=== PATIENT | female | born 1980 | race Caucasian/White ===

== ENCOUNTER 2018-09-20 09:46 | Emergency (ER) | payer OTHER ==
[2018-09-20 10:33] LABS: ADD MAN DIFF? NO
[2018-09-20 10:35] LABS: WHITE BLOOD COUNT 9.8 10^3/ul (4.8-10.8)
[2018-09-20 10:35] LABS: BASOPHILS % 0.3 % (0.0-2.0); EOSINOPHILS % 0.4 % (0.0-7.0); HEMATOCRIT 36.3 % (37.0-47.0); HEMOGLOBIN 12.2 g/dl (12.0-16.0); LYMPHOCYTES % 20.3 % (15.0-51.0); MEAN CORPUSCULAR HEMOGLOBIN 31.2 pg (29.0-33.0); MEAN CORPUSCULAR HGB CONC 33.6 g/dl (32.0-37.0); MEAN CORPUSCULAR VOLUME 92.8 fl (82.0-101.0); MEAN PLATELET VOLUME 9.6 fl (7.4-10.4); MONOCYTE # 0.4 10^3/ul (0.3-0.9); MONOCYTES % 4.2 % (0.0-11.0); NEUTROPHIL # 7.3 10^3/ul (1.6-7.5); NEUTROPHILS % 74.5 % (39.0-77.0); PLATELET COUNT 272 10^3/UL (140-415); RED BLOOD COUNT 3.91 10^6/ul (4.20-5.40); RED CELL DISTRIBUTION WIDTH 13.4 % (11.5-14.5)
[2018-09-20 10:50] LABS: UR BACTERIA FEW /HPF (NONE SEEN); UR RBC > 182 /HPF (0-5); UR SQUAMOUS EPITHELIAL CELL FEW /HPF (FEW); UR WBC 8 /HPF (0-5)
[2018-09-20 11:10] LABS: ADD UMIC YES; UR ASCORBIC ACID NEGATIVE (NEGATIVE); UR BILIRUBIN (Dip) NEGATIVE (NEGATIVE); UR BLOOD (Dip) 3+ mg/dL (NEGATIVE); UR CALCIUM OXALATE CRYSTAL MANY /HPF (NONE SEEN); UR CLARITY CLEAR (CLEAR); UR COLOR YELLOW (YELLOW); UR GLUCOSE (Dip) NEGATIVE (NEGATIVE); UR KETONES (Dip) NEGATIVE (NEGATIVE); UR LEUKOCYTE ESTERASE (Dip) NEGATIVE Leu/ul (NEGATIVE); UR MUCUS FEW /HPF (NONE SEEN); UR NITRITE (Dip) NEGATIVE (NEGATIVE); UR TOTAL PROTEIN (Dip) NEGATIVE (NEGATIVE); UR UROBILINOGEN (Dip) NEGATIVE (NEGATIVE)
== END 2018-09-20 12:25 | disposition home or self-care (01) ==
LOC: FTE 09:46
DX: O03.9 Complete or unspecified spontaneous abortion without complication (principal)
CPT/HCPCS: 36415; 76801; 81001; 84702; 85025; 86900; 86901; 99284-25

== ENCOUNTER 2018-11-20 15:27 | Inpatient (IN) | payer OTHER ==
[2018-11-20] MEDS: ACETAMINOPHEN 500 MG TAB PO (16:25)
[2018-11-20 16:36] LABS: ADD MAN DIFF? NO
[2018-11-20 16:37] LABS: BASOPHILS % 0.4 % (0.0-2.0); EOSINOPHILS # 0.1 10^3/ul (0.0-0.5); EOSINOPHILS % 1.3 % (0.0-7.0); HEMATOCRIT 34.3 % (37.0-47.0); HEMOGLOBIN 11.4 g/dl (12.0-16.0); LYMPHOCYTES # 3.4 10^3/ul (0.8-2.9); LYMPHOCYTES % 32.8 % (15.0-51.0); MEAN CORPUSCULAR HEMOGLOBIN 30.8 pg (29.0-33.0); MEAN CORPUSCULAR HGB CONC 33.2 g/dl (32.0-37.0); MEAN CORPUSCULAR VOLUME 92.7 fl (82.0-101.0); MEAN PLATELET VOLUME 9.6 fl (7.4-10.4); MONOCYTE # 0.5 10^3/ul (0.3-0.9); NEUTROPHIL # 6.2 10^3/ul (1.6-7.5); NEUTROPHILS % 60.4 % (39.0-77.0); PLATELET COUNT 241 10^3/UL (140-415); RED CELL DISTRIBUTION WIDTH 13.1 % (11.5-14.5)
[2018-11-20 16:37] LABS: WHITE BLOOD COUNT 10.3 10^3/ul (4.8-10.8)
[2018-11-20 16:40] LABS: ADD UMIC YES; UR ASCORBIC ACID NEGATIVE (NEGATIVE); UR BILIRUBIN (Dip) NEGATIVE (NEGATIVE); UR BLOOD (Dip) 3+ mg/dL (NEGATIVE); UR CLARITY CLEAR (CLEAR); UR COLOR STRAW (YELLOW); UR GLUCOSE (Dip) NEGATIVE (NEGATIVE); UR KETONES (Dip) NEGATIVE (NEGATIVE); UR LEUKOCYTE ESTERASE (Dip) NEGATIVE Leu/ul (NEGATIVE); UR NITRITE (Dip) NEGATIVE (NEGATIVE); UR RBC 0 /HPF (0-5); UR TOTAL PROTEIN (Dip) NEGATIVE (NEGATIVE); UR UROBILINOGEN (Dip) NEGATIVE (NEGATIVE); UR WBC 1 /HPF (0-5)
[2018-11-20 16:55] LABS: ALANINE AMINOTRANSFERASE 18 IU/L (13-69); ALBUMIN 4.2 g/dl (3.3-4.9); ALBUMIN/GLOBULIN RATIO 1.31; ALKALINE PHOSPHATASE 86 IU/L (42-121); ANION GAP 8 (5-13); ASPARTATE AMINO TRANSFERASE 21 IU/L (15-46); BILIRUBIN,INDIRECT 0.4 mg/dl (0-1.1); BILIRUBIN,TOTAL 0.4 mg/dl (0.2-1.3); BLOOD UREA NITROGEN 13 mg/dl (7-20); CALCIUM 9.4 mg/dl (8.4-10.2); CARBON DIOXIDE 31 mmol/L (21-31); CHLORIDE 102 mmol/L (97-110); CREATININE 0.77 mg/dl (0.44-1.00); Estimated GFR > 60 mL/min (>60); GLUCOSE 95 mg/dl (70-220); LIPASE 64 U/L (23-300); POTASSIUM 3.7 mmol/L (3.5-5.1); SODIUM 141 mmol/L (135-144); TOTAL PROTEIN 7.4 g/dl (6.1-8.1)
[2018-11-20] MEDS: IOHEXOL 300MG/ML 150 ML BTL (18:45)
[2018-11-20] MEDS: SOD CHLORIDE 0.9% 100 ML (18:45)
[2018-11-20] MEDS: PIPER-TAZO 3.375 GM IV (PMX) 100 ML IVPB (19:49)
[2018-11-20] MEDS: SOD CHLORIDE 0.9% 1,000 ML IV (20:02)
[2018-11-20] MEDS ORDERED: DOCUSATE SODIUM 100 MG CAP PO (21:00)
[2018-11-20] MEDS ORDERED: NACL 0.9% 3 ML SYG IV (21:00)
[2018-11-20] MEDS ORDERED: ONDANSETRON 4 MG INJ IV (21:00)
[2018-11-20] MEDS ORDERED: ACETAMINOPHEN 325 MG TAB PO (21:00)
[2018-11-20] MEDS: FAMOTIDINE 20 MG INJ IV (21:39)
[2018-11-20] MEDS: D5-NS + KCL 20 MEQ 1,000 ML IV (21:39)
[2018-11-21] MEDS: D5-NS + KCL 20 MEQ 1,000 ML IV ×2 (05:31→17:00)
[2018-11-21 06:52] LABS: ADD MAN DIFF? NO
[2018-11-21 06:55] LABS: WHITE BLOOD COUNT 5.3 10^3/ul (4.8-10.8)
[2018-11-21 06:55] LABS: BASOPHILS % 0.6 % (0.0-2.0); EOSINOPHILS # 0.1 10^3/ul (0.0-0.5); EOSINOPHILS % 2.5 % (0.0-7.0); HEMATOCRIT 34.2 % (37.0-47.0); LYMPHOCYTES # 2.2 10^3/ul (0.8-2.9); LYMPHOCYTES % 41.3 % (15.0-51.0); MEAN CORPUSCULAR HEMOGLOBIN 30.1 pg (29.0-33.0); MEAN CORPUSCULAR HGB CONC 32.2 g/dl (32.0-37.0); MEAN CORPUSCULAR VOLUME 93.4 fl (82.0-101.0); MEAN PLATELET VOLUME 10.2 fl (7.4-10.4); MONOCYTE # 0.3 10^3/ul (0.3-0.9); NEUTROPHIL # 2.6 10^3/ul (1.6-7.5); NEUTROPHILS % 49.4 % (39.0-77.0); PLATELET COUNT 242 10^3/UL (140-415); RED BLOOD COUNT 3.66 10^6/ul (4.20-5.40); RED CELL DISTRIBUTION WIDTH 13.2 % (11.5-14.5)
[2018-11-21 07:13] LABS: HEMOGLOBIN A1C 5.2 % (0-5.9)
[2018-11-21 07:19] LABS: INR 1.09; PROTIME 14.2 Sec (11.9-14.9); PT RATIO 1.1
[2018-11-21 07:20] LABS: PARTIAL THROMBOPLASTIN TIME 37.9 Sec (23.0-35.0)
[2018-11-21 07:22] LABS: ANION GAP 4 (5-13); BLOOD UREA NITROGEN 8 mg/dl (7-20); CALCIUM 8.5 mg/dl (8.4-10.2); CARBON DIOXIDE 28 mmol/L (21-31); CHLORIDE 108 mmol/L (97-110); CREATININE 0.62 mg/dl (0.44-1.00); Estimated GFR > 60 mL/min (>60); GLUCOSE 103 mg/dl (70-220); POTASSIUM 3.4 mmol/L (3.5-5.1); SODIUM 140 mmol/L (135-144)
[2018-11-21 07:40] LABS: FREE THYROXINE INDEX (Calc) 2.31 ug/ml (0.65-3.89); T3 UPTAKE 36.1 % (23.5-40.5); T4 (THYROXINE) 6.4 ug/dl (5.5-11.0)
[2018-11-21] MEDS: ACETAMINOPHEN 1000MG/100ML IV 100 ML IVPB (10:46)
[2018-11-21] MEDS: FAMOTIDINE 20 MG INJ IV ×2 (10:46→21:44)
[2018-11-21] MEDS ORDERED: MIDAZOLAM 1 MG/ML 2 ML INJ (14:59)
[2018-11-21] MEDS: LIDOCAINE 1%/EPI 30 ML INJ (15:35)
[2018-11-21] MEDS: BUPIVACAINE 0.25% (MPF) 30 ML INJ (15:35)
[2018-11-21] MEDS ORDERED: ONDANSETRON 4 MG INJ (16:05)
[2018-11-21] MEDS ORDERED: NEOSTIGMINE 3 MG/3 ML SYRINGE (16:08)
[2018-11-21] MEDS ORDERED: ROCURONIUM 50 MG INJ (16:08)
[2018-11-21] MEDS ORDERED: metroNIDAZOLE 500 MG/NS (PMX) 100 ML IVPB (16:08)
[2018-11-21] MEDS ORDERED: GLYCOPYRROLATE 0.4 MG INJ (16:08)
[2018-11-21] MEDS ORDERED: CEFAZOLIN 1 GM INJ (16:08)
[2018-11-21] MEDS ORDERED: LIDOCAINE 2% (SDV) 5 ML INJ (16:08)
[2018-11-21] MEDS ORDERED: PROPOFOL 20 ML (16:08)
[2018-11-21] MEDS ORDERED: IBUPROFEN 800 MG TAB PO (16:30)
[2018-11-21] MEDS ORDERED: HYDROmorphONE 0.5 MG/0.5 ML SYG IV (16:30)
[2018-11-21] MEDS ORDERED: ONDANSETRON 4 MG INJ IV (17:00)
[2018-11-21] MEDS ORDERED: METOCLOPRAMIDE 10 MG INJ IV (17:00)
[2018-11-21] MEDS ORDERED: MEPERIDINE 25 MG INJ IV (17:00)
[2018-11-21] MEDS ORDERED: FENTAnyl 50 MCG/ML VIAL IV (17:00)
[2018-11-21] MEDS ORDERED: KETOROLAC 30 MG INJ IV (17:00)
[2018-11-21] MEDS ORDERED: HYDROmorphONE 1 MG/5 ML IV SYRINGE IV ×2 (17:00)
[2018-11-21] MEDS ORDERED: DIPHENHYDRAMINE 50 MG INJ IV (17:00)
[2018-11-21] MEDS: ONDANSETRON 4 MG INJ IV (20:03)
[2018-11-21] MEDS: morphine 2 MG INJ IV (20:03)
[2018-11-22] MEDS: morphine 2 MG INJ IV ×3 (01:37→10:55)
[2018-11-22] MEDS: FAMOTIDINE 20 MG INJ IV (08:30)
[2018-11-22] MEDS: HYDROCODONE/APAP (5/325) TAB PO (17:28)
== END 2018-11-22 18:19 | disposition home or self-care (01) | DRG 343 ==
LOC: FTE 15:27 → PP2 20:40
PROC: 0DTJ4ZZ Resection of Appendix, Percutaneous Endoscopic Approach (ICD-10-PCS; principal; 2018-11-21 13:30)
PROC: 0WQF4ZZ Repair Abdominal Wall, Percutaneous Endoscopic Approach (ICD-10-PCS; 2018-11-21 13:30)
DX: K35.80 Unspecified acute appendicitis (principal); E66.9 Obesity, unspecified; Z68.28 Body mass index [BMI] 28.0-28.9, adult
CPT/HCPCS: 36415; 74177; 80048; 80053; 81001; 83036; 83690; 84436; 84479; 84703; 85025; 85610; 85730; 88304; 96365; 99285-25